=== PATIENT | female | born 1990 | race Caucasian/White ===

== ENCOUNTER 2020-07-06 11:08 | Emergency (ER) | payer BC ==
[~2020-07-06] VITALS: Ht 157.5 cm; Wt 54.9 kg
[2020-07-06 11:08] VITALS: BP_SYST 150
--- NOTE | 2020-07-06 11:08 | NUR ---
BROUGHT BACK TO BED #7 AND REPORT GIVEN TO ZOE
--- NOTE | 2020-07-06 11:15 | NUR ---
Pt came to ER for RLQ abd pain and R flank pain 10/. Pt states pain decreased after stopping control patch last night at 0300. Resting in rbern no distress
--- NOTE | 2020-07-06 11:25 | NUR ---
ER at bedside examining patient.
[2020-07-06] MEDS ORDERED: KETOROLAC TROMETHAMINE 60 MG/2 ML VIAL IM ONE (11:30)
--- NOTE | 2020-07-06 13:00 | NUR ---
Pt resting comfortably at this time no distress
[2020-07-06 13:59] VITALS: BP_SYST 135
--- NOTE | 2020-07-06 14:02 | NUR ---
Patient given written and verbal discharge instructions and verbalizes understanding. ER MD discussed with patient the results and treatment provided. Patient in stable condition. ID arm band removed. Rx of Motrin and Tramadol given. Patient educated on pain management and to follow up with PMD. Pain Scale 3/10. Opportunity for questions provided and answered. Medication side effect fact sheet provided.
== END 2020-07-06 14:02 | disposition home or self-care (01) ==
LOC: SED 11:08
DX: D25.9 Leiomyoma of uterus, unspecified (principal); N83.201 Unspecified ovarian cyst, right side; R03.0 Elevated blood-pressure reading, without diagnosis of hypertension; F12.90 Cannabis use, unspecified, uncomplicated
CPT/HCPCS: 76830; 76857; 81002; 81025; 96372; 99284; J1885

== ENCOUNTER 2020-08-12 16:27 | Outpatient (CLI) | payer BC, SELFPAY ==
[~2020-08-12] VITALS: Ht 157.5 cm; Wt 50.8 kg
[2020-08-12 14:02] LABS: BILIRUBIN,URINE NEGATIVE (NEGATIVE); BLOOD, URINE NEGATIVE (NEGATIVE); CLARITY/URINE CLEAR (CLEAR); COLOR,URINE YELLOW (YELLOW); GLUCOSE,URINE NEGATIVE (NEGATIVE); KETONES,URINE NEGATIVE (NEGATIVE); LEUKOCYTE ESTERASE ,URINE NEGATIVE (NEGATIVE); NITRITE, URINE NEGATIVE (NEGATIVE); PROTEIN URINE NEGATIVE (NEGATIVE); UROBILINOGEN,URINE 0.2 (0.2-1.0)
[2020-08-12 14:03] LABS: CALCIUM 9.2 mg/dL (8.4-11.0); CREATININE 0.81 mg/dL (0.55-1.30); POTASSIUM 3.9 mmol/L (3.5-5.1)
[2020-08-12 14:04] LABS: BASOPHILS % (AUTO) 0.7 % (0.0-2.0); EOSINOPHILS % (AUTO) 0.6 % (0.0-4.0); HEMATOCRIT 39.8 % (36-48); HEMOGLOBIN 13.6 g/dL (12.0-16.0); LYMPHOCYTES # (AUTO) 1.4 K/uL (1.0-5.5); LYMPHOCYTES % (AUTO) 25.9 % (20.5-51.5); MEAN CORPUSCULAR HEMOGLOBIN 30 pg (27-31); MEAN CORPUSCULAR HGB CONC 34 % (32-36); MEAN CORPUSCULAR VOLUME 88 fL (79.0-98.0); MONOCYTES # (AUTO) 0.3 K/uL (0.0-1.0); MONOCYTES % (AUTO) 5.3 % (1.7-9.3); NEUTROPHILS # (AUTO) 3.6 K/uL (1.8-7.7); NEUTROPHILS % (AUTO) 67.5 % (40.0-70.0); PLATELET COUNT (AUTO) 180 K/uL (130-430); RED BLOOD CELL COUNT(AUTO) 4.51 MIL/uL (4.2-6.2); WHITE BLOOD COUNT (AUTO) 5.3 K/uL (4.8-10.8)
[2020-08-12 14:07] LABS: HCG,QUAL RESULT NEGATIVE (NEGATIVE)
[2020-08-12 14:10] LABS: PROTHROMBIN TIME 10.3 SECS (9.5-12.5)
== END 2020-08-12 18:00 | disposition home or self-care (01) ==
LOC: SLB 16:27 → EDSTATUS 08-15 07:30
PROVIDERS: ATTEND Obstetrics & Gynecology
DX: Z01.812 Encounter for preprocedural laboratory examination (principal); Z20.828 Contact with and (suspected) exposure to other viral communicable diseases; N83.209 Unspecified ovarian cyst, unspecified side; D25.9 Leiomyoma of uterus, unspecified
CPT/HCPCS: 36415; 80048; 81003; 84703; 85025; 85610; 85730; 86886; 86900; 86901; U0003

== ENCOUNTER 2020-09-06 06:04 | Inpatient (IN) | payer BC, SELFPAY ==
[2020-09-03 15:57] LABS: BILIRUBIN,URINE NEGATIVE (NEGATIVE); BLOOD, URINE NEGATIVE (NEGATIVE); CLARITY/URINE CLEAR (CLEAR); COLOR,URINE YELLOW (YELLOW); GLUCOSE,URINE NEGATIVE (NEGATIVE); KETONES,URINE NEGATIVE (NEGATIVE); LEUKOCYTE ESTERASE ,URINE NEGATIVE (NEGATIVE); NITRITE, URINE NEGATIVE (NEGATIVE); PROTEIN URINE NEGATIVE (NEGATIVE); UROBILINOGEN,URINE 0.2 (0.2-1.0)
[2020-09-03 16:00] LABS: HCG,QUAL RESULT NEGATIVE (NEGATIVE)
[2020-09-03 16:01] LABS: BASOPHILS % (AUTO) 0.7 % (0.0-2.0); EOSINOPHILS # (AUTO) 0.1 K/uL (0.0-0.4); EOSINOPHILS % (AUTO) 1.1 % (0.0-4.0); HEMATOCRIT 39.5 % (36-48); LYMPHOCYTES # (AUTO) 1.3 K/uL (1.0-5.5); LYMPHOCYTES % (AUTO) 23.4 % (20.5-51.5); MEAN CORPUSCULAR HEMOGLOBIN 30 pg (27-31); MEAN CORPUSCULAR HGB CONC 33 % (32-36); MEAN CORPUSCULAR VOLUME 90 fL (79.0-98.0); MONOCYTES # (AUTO) 0.4 K/uL (0.0-1.0); MONOCYTES % (AUTO) 7.1 % (1.7-9.3); NEUTROPHILS # (AUTO) 3.8 K/uL (1.8-7.7); NEUTROPHILS % (AUTO) 67.7 % (40.0-70.0); PLATELET COUNT (AUTO) 197 K/uL (130-430); RED BLOOD CELL COUNT(AUTO) 4.38 MIL/uL (4.2-6.2); RED CELL DISTRIBUTION WIDTH 13.5 % (9.0-15.0); WHITE BLOOD COUNT (AUTO) 5.5 K/uL (4.8-10.8)
[2020-09-03 16:27] LABS: CALCIUM 8.7 mg/dL (8.4-11.0); CREATININE 0.7 mg/dL (0.55-1.30); POTASSIUM 3.8 mmol/L (3.5-5.1)
[2020-09-03 16:33] LABS: PROTHROMBIN TIME 9.8 SECS (9.5-12.5)
[~2020-09-06] VITALS: Ht 157.5 cm; Wt 50.8 kg
[2020-09-06] MEDS ORDERED: CEFAZOLIN SOD 1 GM in D5W 50 ML IV ONE (07:45)
[2020-09-06] MEDS ORDERED: MEPERIDINE HCL/PF 25 MG/ML DISP.SYRIN IVP PRN (10:30)
[2020-09-06] MEDS ORDERED: NALOXONE HCL 0.4 MG/ML AMP (NARCAN) IVP PRN (10:30)
[2020-09-06] MEDS ORDERED: ONDANSETRON HCL 4 MG/2 ML VIAL IVP PRN ×2 (10:30)
[2020-09-06] MEDS ORDERED: LR 1,000 ML IV SCH ×2 (10:30)
[2020-09-06] MEDS ORDERED: HYDROmorphone 1 MG INJ. 1 MG/ML AMPUL IVP PRN (10:30)
[2020-09-06] MEDS ORDERED: KETOROLAC TROMETHAMINE 30 MG VIAL IVP PRN (10:30)
[2020-09-06] MEDS ORDERED: KETOROLAC TROMETHAMINE 30 MG VIAL ONE (10:40)
[2020-09-06] MEDS ORDERED: ONDANSETRON HCL 4 MG/2 ML VIAL ONE (10:40)
[2020-09-06] MEDS ORDERED: PROPOFOL 200MG/ 20ML VIAL (DIPRIVAN) IV ONE (10:40)
[2020-09-06] MEDS ORDERED: DEXAMETHASONE SOD PHOSPHATE 4 MG/ML VIAL ONE (10:40)
[2020-09-06] MEDS ORDERED: SEVOFLURANE 15 MIN GAS INH ONE (10:40)
[2020-09-06] MEDS ORDERED: NS IRRIG SOLN 1000 ML IR ONE (10:40)
[2020-09-06] MEDS ORDERED: LR 1,000 ML IV.SOLN IV ONE (10:40)
[2020-09-06] MEDS ORDERED: MIDAZOLAM HCL 5 MG/ML VIAL (VERSED) IV ONE (10:40)
[2020-09-06] MEDS ORDERED: OXYTOCIN 10 UNIT/ML VIAL ONE (10:40)
[2020-09-06] MEDS ORDERED: GLYCOPYRROLATE 0.2 MG/ML VIAL ONE (10:40)
[2020-09-06] MEDS ORDERED: ROCURONIUM BROMIDE 10 MG/ML (ZEMURON) ONE (10:40)
[2020-09-06] MEDS ORDERED: NEOSTIGMINE METHYLSULFATE 1 MG/ML, 10 ML VIAL ONE (10:40)
[2020-09-06] MEDS ORDERED: NS 100 ML BAG ONE (10:40)
[2020-09-06] MEDS ORDERED: fentaNYL CITRATE/PF 100 MCG/2 ML AMP ONE (10:40)
[2020-09-06] MEDS: HYDROmorphone 1 MG INJ. 1 MG/ML AMPUL ONE ×2 (11:00→11:10)
[2020-09-06] MEDS ORDERED: MIDAZOLAM HCL 2 MG/2 ML VIAL (VERSED) ONE (11:18)
[2020-09-06] MEDS ORDERED: MEPERIDINE HCL/PF 25 MG/ML DISP.SYRIN ONE (11:19)
[2020-09-06] MEDS ORDERED: MIDAZOLAM HCL 2 MG/2 ML VIAL (VERSED) IVP ONE (11:30)
[2020-09-06] MEDS: OXYCODONE/ACETAMINOPHEN 5-325 TABLET PO PRN ×2 (15:46→20:29)
[2020-09-06] MEDS: IBUPROFEN 800 MG TABLET PO PRN (16:11)
[2020-09-06] MEDS: SIMETHICONE 80 MG TAB.CHEW PO PRN ×2 (17:45→20:28)
[2020-09-06 18:35] VITALS: BP_SYST 135
[2020-09-06] MEDS ORDERED: TEMAZEPAM 15 MG CAPSULE PO PRN ×2 (19:15→21:00)
[2020-09-06] MEDS ORDERED: SENNOSIDES/DOCUSATE SODIUM 1 TAB TABLET(SENOKOT-S) PO PRN ×2 (21:00)
[2020-09-07] MEDS: SIMETHICONE 80 MG TAB.CHEW PO PRN ×6 (00:40→23:44)
[2020-09-07] MEDS: OXYCODONE/ACETAMINOPHEN 5-325 TABLET PO PRN ×5 (00:41→20:30)
[2020-09-07 06:52] LABS: HEMATOCRIT 22.5 % (36-48)
[2020-09-07 08:09] LABS: HEMOGLOBIN 7.6 g/dL (12.0-16.0)
[2020-09-07] MEDS: IBUPROFEN 800 MG TABLET PO PRN ×2 (12:15→23:43)
[2020-09-07 15:32] LABS: HEMATOCRIT 22.4 % (36-48); HEMOGLOBIN 7.4 g/dL (12.0-16.0)
[2020-09-08] MEDS: SIMETHICONE 80 MG TAB.CHEW PO PRN ×2 (06:07→14:47)
[2020-09-08] MEDS: IBUPROFEN 800 MG TABLET PO PRN ×3 (06:07→17:25)
[2020-09-08] MEDS: OXYCODONE/ACETAMINOPHEN 5-325 TABLET PO PRN (14:46)
== END 2020-09-08 18:00 | disposition home or self-care (01) | DRG 743 ==
LOC: SMU 06:04 → SPU 12:17
PROVIDERS: ADMIT Obstetrics & Gynecology; ATTEND Obstetrics & Gynecology
PROC: 0UB90ZZ Excision of Uterus, Open Approach (ICD-10-PCS; principal; 2020-09-06 07:30)
DX: D25.9 Leiomyoma of uterus, unspecified (principal); N83.209 Unspecified ovarian cyst, unspecified side; Z20.828 Contact with and (suspected) exposure to other viral communicable diseases; Z79.1 Long term (current) use of non-steroidal anti-inflammatories (NSAID); Z79.899 Other long term (current) drug therapy; Z80.9 Family history of malignant neoplasm, unspecified; Z78.9 Other specified health status
CPT/HCPCS: 36415; 80048; 81003; 84703; 85018-TC; 85025; 85610-TC; 85730-TC; 86886; 86900; 86901; 88305; J0690; J1100; J1170; J1885; J2175; J2250; J2405; J2590; J2704; J2710; J3010; J3465; J3490; J7060; J7120; U0003